=== PATIENT | female | born 1965 | race Two or more races ===

== ENCOUNTER → 2016-05-19 | Outpatient (CLI) | payer MEDICAID ==
[2016-05-19 11:13] LABS: ALANINE AMINOTRANSFERASE 33 U/L (3-33); ALBUMIN/GLOBULIN RATIO 1.2 (1.0-2.7); ANION GAP 16 (5-15); ASPARTATE AMINO TRANSFERASE 31 U/L (5-40); CALCIUM 9.4 mg/dL (8.6-10.2); CARBON DIOXIDE 25 mEQ/L (20-30); CHLORIDE 102 mEQ/L (98-107); CREATININE 0.7 mg/dL (0.5-0.9); GLOMERULAR FILTRATION RATE > 60 mL/min (>60); HEMOLYSIS 6; SODIUM 143 mEQ/L (135-145); TOTAL PROTEIN 7.8 g/dL (6.6-8.7)
== END | disposition home or self-care (01) ==
LOC: LAB 09:15
DX: L02.611 Cutaneous abscess of right foot (principal)
CPT/HCPCS: 36415; 80053